=== PATIENT | female | born 1955 | race Caucasian/White ===

== ENCOUNTER 2019-01-16 09:54 | Outpatient (REF) | payer BC, SELFPAY ==
[2019-01-16 19:42] LABS: Iron 57 ug/dL (50-175)
[2019-01-16 19:44] LABS: ALT 25 U/L (12-78); AST 14 U/L (15-37); Anion Gap 10.1 mmol/L (3-11); BUN 14 mg/dL (7-18); CO2 26.9 mmol/L (21.0-32.0); CREATININE 0.88 mg/dL (0.55-1.02); Calculated LDL 78; Chloride 104 mmol/L (98-107); Cholesterol 160 mg/dL (50-200); Glucose 104 mg/dL (70-100); HDL Cholesterol 37 mg/dL (40-60); Potassium 4.4 mmol/L (3.5-5.1); Sodium 141 mmol/L (136-145); Triglyceride 225 mg/dL (30-150)
== END 2019-01-16 10:14 ==
LOC: NCHCN 09:54
PROVIDERS: PCP Nurse Practitioner Family; Visit Provider Nurse Practitioner Family
DX: I10 Essential (primary) hypertension (principal); E78.5 Hyperlipidemia, unspecified; D64.9 Anemia, unspecified
CPT/HCPCS: 80048; 80061; 83721; 83540; 84450; 84460

== ENCOUNTER 2019-05-18 17:16 | Outpatient (REF) | payer BC, SELFPAY | END 2019-05-18 17:36 | LOC: NCHCN 17:16 | PROVIDERS: PCP Nurse Practitioner Family; Visit Provider Nurse Practitioner Family | DX: N89.8 Other specified noninflammatory disorders of vagina (principal) | CPT/HCPCS: 87480; 87510; 87660 ==

== ENCOUNTER 2020-03-14 09:15 | Outpatient (REF) | payer BC, SELFPAY ==
[2020-03-14 20:05] LABS: ALT 24 U/L (14-59); AST 14 U/L (15-37); Albumin 4.2 g/dL (3.4-5.0); Alkaline Phosphatase 138 U/L (46-116); Anion Gap 10.3 mmol/L (3-11); BUN 20 mg/dL (7-18); Bilirubin, Total 0.3 mg/dL (0.2-1.0); CO2 27.7 mmol/L (21.0-32.0); CREATININE 0.97 mg/dL (0.55-1.02); Calcium 9.5 mg/dL (8.5-10.1); Chloride 102 mmol/L (98-107); Creatine Kinase 64 U/L (26-192); Estimated GFR 57.64 (mL/min/1.73m2); Glucose 140 mg/dL (74-106); Potassium 4.4 mmol/L (3.5-5.1); Sodium 140 mmol/L (136-145); Total Protein 7.5 g/dL (6.4-8.2)
[2020-03-14 20:12] LABS: ESR 28 mm/hr (0-30)
[2020-03-15 17:01] LABS: CRP, High Sensitivity 3.93 mg/L (See Note)
== END 2020-03-14 09:35 ==
LOC: NCHCN 09:15
PROVIDERS: PCP Nurse Practitioner Family; Visit Provider Nurse Practitioner Family
DX: I10 Essential (primary) hypertension (principal); M79.10 Myalgia, unspecified site
CPT/HCPCS: 80053; 82550; 85652; 86141

== ENCOUNTER 2021-03-21 17:21 | Outpatient (REF) | payer BC, SELFPAY ==
[2021-03-21 18:45] LABS: ALT 32 U/L (14-59); AST 16 U/L (15-37); Albumin 4.1 g/dL (3.4-5.0); Alkaline Phosphatase 139 U/L (46-116); Anion Gap 8.9 mmol/L (3-11); BUN 18 mg/dL (7-18); Bilirubin, Total 0.2 mg/dL (0.2-1.0); C-Reactive Protein 0.86 mg/dL (0.0-0.3); CO2 28.1 mmol/L (21.0-32.0); CREATININE 1.1 mg/dL (0.55-1.02); Calcium 9.2 mg/dL (8.5-10.1); Chloride 102 mmol/L (98-107); Estimated GFR 49.69 (mL/min/1.73m2); Glucose 102 mg/dL (74-106); Sodium 139 mmol/L (136-145); Total Protein 7.6 g/dL (6.4-8.2)
[2021-03-21 19:08] LABS: ESR 29 mm/hr (0-30)
[2021-03-21 19:31] LABS: COMMENT (LAB VIEW ONLY) 87.09 mg/dL; Microalb ug/mg Crea 4.4 ug/mg Cr
== END 2021-03-21 17:22 | disposition home or self-care (01) ==
LOC: NCHCN 17:21
PROVIDERS: PCP Nurse Practitioner Family; Visit Provider Nurse Practitioner Family
DX: E11.9 Type 2 diabetes mellitus without complications (principal); G89.29 Other chronic pain
CPT/HCPCS: 80053; 85652; 82043; 82570; 86140

== ENCOUNTER 2021-04-21 12:16 | Outpatient (REF) | payer MEDICARE, BC, SELFPAY ==
[2021-04-21 19:41] LABS: Anion Gap 7.1 mmol/L (3-11); BUN 17 mg/dL (7-18); CO2 28.9 mmol/L (21.0-32.0); CREATININE 1.1 mg/dL (0.55-1.02); Calcium 8.9 mg/dL (8.5-10.1); Chloride 104 mmol/L (98-107); Estimated GFR 49.69 (mL/min/1.73m2); Glucose 178 mg/dL (74-106); Potassium 4.2 mmol/L (3.5-5.1); Sodium 140 mmol/L (136-145)
[2021-04-23 16:10] LABS: Rheumatoid Factor <8.6 IU/mL (<12.0)
== END 2021-04-21 12:17 | disposition home or self-care (01) ==
LOC: NCHCN 12:16
PROVIDERS: PCP Nurse Practitioner Family; Visit Provider Nurse Practitioner Family
DX: R94.4 Abnormal results of kidney function studies (principal); G89.29 Other chronic pain
CPT/HCPCS: 80048; 86431

== ENCOUNTER 2021-05-16 09:26 | Outpatient (REF) | payer MEDICARE, BC, SELFPAY ==
--- OUTSIDE RECORDS SUMMARY | 2021-05-16 09:31 | XMS_ITS ---
:1955 Author Care Team Providers Name Role Phone ELA HAMILTON MD Primary Care Provider [phone] JUD PORTILLO PA-C Orthopedic Surgeon [phone] Allergies Code Code System Name Reaction Severity Status Onset 268010 RxNorm Oxycontin ? ? Active ? Wellbutrin ? ? Active ? Medications Name Status Start Date Stop Date ? ? amitriptyline 25 mg tablet Active ? Not a vailable Take 1 tablet every day by oral route. atorvastatin 20 mg tablet Active ? Not av ailable cetirizine 10 mg tablet Completed ? 03/23/20 21 clobetasol 0.05 % topical ointment Active ? Not available APPLY A THIN LAYER TO THE AFFECTED AREA(S) BY TOPICAL ROUTE 1 T IMES PER DAY clonazepam 0.5 mg tablet Active ? Not marifer ilable diclofenac 1 % topical gel Completed ? 03/23 estradiol 10 mcg vaginal tablet Active ? Not available fluticasone propionate 50 Active ? Not av ailable mcg/actuation nasal spray,suspension FreeStyle Lancets 28 gauge Active ? Not a vailable FreeStyle Lite Strips Active ? Not availa ble lisinopril 20 mg tablet Completed ? 03/23/20 21 lisinopril 5 mg tablet Active ? Not avail able metformin 500 mg tablet Active ? Not avai lable mirtazapine 7.5 mg tablet Completed ? 2020 nitrofurantoin Completed ? 03/28/2021 monohydrate/macrocrystals 100 mg capsule nitroglycerin 0.4 mg sublingual Active ? Not available tablet omeprazole 40 mg capsule,delayed Active ? Not available release oxycodone 5 mg tablet Completed 07/10/2012 08/27/2012 1-2 Tablet: every 4-6 hours as needed sertraline 100 mg tablet Completed ? 021 zolpidem 5 mg tablet Completed ? 03/23/2021 Problems Name Status Onset Date Source ? Anxiety Active 03/23/2021 ? Depressive Disorder Active 03/23/2021 ? Anemia Active ? History Carpal Tunnel Syndrome Active ? History Musculoskeletal Symptom Active ? History Chest Pain Active ? History Blood Chemistry Abnormal Active ? History Pain of Left Hand Active ? History Procedure by Method Unknown ? History Procedures Date Name Performed by ? 07/29/1996 Laparoscopy Information not avai lable Notes: Diagnostic w/ Lysis of Adhesio ns, Torsten Fundoplication ? Appendectomy Information not avai lable ? Cholecystectomy Information not avai lable ? Torsten Fundoplication Information not av ailable ? Orthopedic Surgery Information not avai lable Notes: right CTR, 07/10/12 02/12/2019 XR, Hand, 3 or More View [facility] (Internal) [address] [place] [address] (Work Place) Results Lab Results Date Name Specimen Result Interpretation Description Value Range Status Address ? 03/28/2021 Pathology TISS ? Report (see ? Final No [facility] Country Study below) [facility] ([facility]) : [address] Past Encounters 04/10/2021 Lichen Sclerosus Et Atrophicus of the Vu lva Javon Moreira MD: [address] [place] [phone], Ph. 03/28/2021 Pruritus of Vulva Javon Moreira MD: [address] [place] [phone], Ph. 08/08/2020 Malik Metzger MD: [address] [place] [address], [address], [place] [address], Ph. Social History Tobacco Smoking Status Never Smoker Vaccine List None recorded. Plan of Care Reminders Provider Appointments None ? ? recorded. Lab None ? ? recorded. Referral None ? ? recorded. Procedures None ? ? recorded. Surgeries None ? ? recorded. Imaging None ? ? recorded. Vitals 03/28/2021 09:00AM New Patient 30 Height Weight BMI Blood Pressure 157.48 cm 81.19 kg 32.7 kg/m2 130/80 mm[Hg] 08/08/2020 02:45PM Consult 15 Weight 06/11/2019 03:45PM Injection 15 Height Weight 157.48 cm 05/21/2019 09:00AM Follow Up 15 Height Weight BMI Blood Pressure 157.48 cm 77.47 kg 31.2 kg/m2 122/58 mm[Hg] 04/24/2019 03:30PM Follow Up 15 Height Weight BMI Blood Pressure 157.48 cm 76.57 kg 30.9 kg/m2 138/68 mm[Hg] 04/01/2019 03:00PM Follow Up 15 Height Weight 157.48 cm 02/12/2019 01:00PM Consult 30 Height Weight BMI Blood Pressure 157.48 cm 75.7 kg 30.5 kg/m2 128/62 mm[Hg] 03/09/2016 Height Weight Blood Pressure 157.48 cm 83.91 kg 182/62 mm[Hg] 08/27/2012 Height Weight Blood Pressure 157.48 cm 84.37 kg 128/60 mm[Hg] 07/18/2012 Height Weight Blood Pressure 157.48 cm 84.37 kg 121/64 mm[Hg] 07/01/2012 Height Weight Blood Pressure 157.48 cm 84.37 kg 122/64 mm[Hg] 04/22/2012 Height Weight Blood Pressure 157.48 cm 84.37 kg 144/72 mm[Hg] 02/28/2012 Height Weight Blood Pressure 157.48 cm 84.37 kg 136/56 mm[Hg]
--- OUTSIDE RECORDS SUMMARY | 2021-05-16 09:31 | XMS_ITS | Encounter Summary ---
:1955 Author Care Team Providers Name Role Phone Anam Hensley MD Primary Care Provider [phone] Chiara Dillon PA-C Orthopedic Surgeon [phone] Reason for Visit None recorded. Assessment and Plan Assessment Note 65 yo who had a recent vul agustina biopsy du eto vulvar irritation seen to discuss result of pathology which was notable for Lichen sclerosis. Finding was explained. Treatment plan discussed. P t. education material was also provided. Questions answered. She will return in 12 weeks for follow up. 20 min visit. 1. Lichen sclerosus et atrophicu s of the vulva ? clobetasol 0.05 % topical ointment Discussion Note: None recorded.Patient educational handouts: No information available. Plan of Care Reminders Provider Appointments Office 20 07/04/2021 [facility] od 9:30AM MD Lillie ? Return to on or around ? Office 10/29/2026 Lab None ? ? recorded. Referral None ? ? recorded. Procedures None ? ? recorded. Surgeries None ? ? recorded. Imaging None ? ? recorded. Medications Name Start Date ? ? amitriptyline 25 mg tablet ? Take 1 tablet every day by oral route. atorvastatin 20 mg tablet ? clobetasol 0.05 % topical ointment ? APPLY A THIN LAYER TO THE AFFECTED AREA(S) BY TOPICAL ROUTE 1 TIMES PER DAY clonazepam 0.5 mg tablet ? estradiol 10 mcg vaginal tablet ? fluticasone propionate 50 mcg/actuation nasal spray,jansen spension ? FreeStyle Lancets 28 gauge ? FreeStyle Lite Strips ? lisinopril 5 mg tablet ? metformin 500 mg tablet ? nitroglycerin 0.4 mg sublingual tablet ? omeprazole 40 mg capsule,delayed release ? Medications Administered None recorded. Vitals None recorded. Results Lab Results None recorded. Allergies Code Code System Name Reaction Severity Onset 467484 RxNorm Oxycontin ? ? ? Wellbutrin ? ? ? Problems Name Status Onset Date Source ? Anxiety Active 03/23/2021 ? Depressive Disorder Active 03/23/2021 ? Anemia Active ? History Carpal Tunnel Syndrome Active ? History Musculoskeletal Symptom Active ? History Chest Pain Active ? History Blood Chemistry Abnormal Active ? History Pain of Left Hand Active ? History Procedures Date Name Performed by ? 07/29/1996 Laparoscopy Information not avai lable Notes: Diagnostic w/ Lysis of Adhesio ns, Torsten Fundoplication ? Appendectomy Information not avai lable ? Cholecystectomy Information not avai lable ? Torsten Fundoplication Information not av ailable ? Orthopedic Surgery Information not avai lable Notes: right CTR, 07/10/12 Vaccine List None recorded. Social History Tobacco Smoking Status Never Smoker What is your level of alcohol consumption? Occasional Did the fall result in an injury? N Have you used IV drugs? N What is your code status? 0 How much tobacco do you chew? none What was the date of your most recent tobacco screening? 11/2018 Do you have an advanced directive? Y Do you feel safe at home? Y Have you fallen in the last 3 months? Y Functional Status Unknown. Past Encounters 04/10/2021 Lichen Sclerosus Et Atrophicus of the Vu lva Javon Moreira MD: [address] [place] [phone], Ph. 03/28/2021 Pruritus of Vulva Javon Moreira MD: [address] [place] [phone], Ph. History of Present Illness Note: 65 yo who had a recent vulvar biopsy du eto vulvar irritation presented to discuss result of pathology. On presentation she appears comfortable, continues to report vulvar burning sensation.Review of Systems: ROS as noted in the HPI Review of Systems None recorded. Physical Exam None recorded.
--- OUTSIDE RECORDS SUMMARY | 2021-05-16 09:32 | XMS_ITS | Encounter Summary ---
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 On exam vulvar atrophy was noted and findings consistent with lichen scl erosis. Information with respect to Lichen sclerosis was provided. A biopsy was recommended with which she agreed. A vulvar biopsy from left labia majora at 5 ocl ock position was obtained. Hemostasis wa s noted. She tolerated the procedure well. She will return to discuss treatment plan after biopsy result is obtained. 30 min visit. 1. Pruritus of vulva ? biopsy, vulva (PROC) Discussion Note: None recorded.Patient educational handouts: No information available. Plan of Care Reminders Provider Appointments Office 20 07/04/2021 [facility] od 9:30AM MD Lillie ? Return to on or around ? Office 10/29/2026 Lab None ? ? recorded. Referral None ? ? recorded. Procedures Biopsy, 03/28/2021 ? Vulva (PROC) Surgeries None ? ? recorded. Imaging None [...] release ? Medications Administered None recorded. Vitals Height Weight BMI Blood Pressure 5 ft 2 in 179 lbs 32.7 kg/m2 130/80 mm[Hg] Results Lab Results None recorded. Allergies Code Code System Name Reaction Severity Onset 263105 RxNorm Oxycontin ? ? ? Wellbutrin ? [...] months? Y Functional Status Unknown. Past Encounters 03/28/2021 Pruritus of Vulva Javon Moreira MD: [address] [place] [phone], Ph. History of Present Illness Note: 65 yo presented with complain of vulvar itching and burning sensation as well as discomfort during intercourse that feels like her sking is stretching and some stime s it results in skingbreak that causes minimal bleeding. On presentation she appears comfortable, denies any other issues. Review of Systems: ROS as noted in the HPI Review of Systems None recorded. Physical Exam ? Brief Pelvic Exam Reported By: Patient Golf Tournament Consultant: Golf Tournament Consultant: present; Kira Mcconnell in Skin: Appearance: no rashes, no le sions Female Genitalia: Vulva: no masses, no lesions , vulvar atrophy. Vagina: no tenderness, no erythema, no abnormal vaginal discharge, no vesicle(s) or ulcers, no cys tocele, no rectocele, normal atrophy
[2021-05-18 18:23] LABS: COVID-19 RT-PCR UVMMC Result Negative (Negative)
== END 2021-05-16 09:27 | disposition home or self-care (01) ==
LOC: NCHCN 09:26
PROVIDERS: PCP Nurse Practitioner Family; Visit Provider Internal Medicine
DX: Z20.822 Contact with and (suspected) exposure to COVID-19 (principal)
CPT/HCPCS: U0003

== ENCOUNTER 2021-11-09 10:06 | Outpatient (REF) | payer MEDICARE, SELFPAY ==
[2021-11-09 21:28] LABS: Abs Immature Grans 0.01 10^3/uL (0.0-0.06); Absolute Basophil Count 0.01 10^3/uL (0.0-0.2); Absolute Eosinophil Count 0.13 10^3/uL (0.0-0.7); Absolute Lymphocyte Count 1.44 10^3/uL (1.2-3.4); Absolute Monocyte Count 0.33 10^3/uL (0.1-0.8); Absolute Neutrophil Count 4.35 10^3/uL (1.2-6.7); Basophils % 0.2; Eosinophils % 2.1; HCT 35.7 % (36.0-46.0); HGB 11.1 g/dL (11.2-15.7); Immature Grans % 0.2; MCH 27.9 pg (27.0-33.0); MCHC 31.1 % (32.0-36.0); MCV 89.7 fL (80-95); MPV 11.4 fL (8.0-11.0); Monocytes % 5.3; Neutrophils % 69.2; Platelet Count 342 10^3/uL (130-400); RBC 3.98 10^6/uL (3.93-5.22); WBC 6.27 10^3/uL (4.4-10.8)
[2021-11-09 21:31] LABS: ALT 29 U/L (14-59); AST 22 U/L (15-37); Albumin 3.9 g/dL (3.4-5.0); Alkaline Phosphatase 134 U/L (46-116); Anion Gap 10.2 mmol/L (3-11); BUN 20 mg/dL (7-18); Bilirubin, Total 0.2 mg/dL (0.2-1.0); CO2 27.8 mmol/L (21.0-32.0); Chloride 102 mmol/L (98-107); Glucose 204 mg/dL (74-106); Iron 45 ug/dL (50-170); Potassium 4.5 mmol/L (3.5-5.1); Sodium 140 mmol/L (136-145); Total Protein 7.3 g/dL (6.4-8.2)
== END 2021-11-09 10:07 | disposition home or self-care (01) ==
LOC: NCHCN 10:06
PROVIDERS: PCP Nurse Practitioner Family; Visit Provider Nurse Practitioner Family
DX: D64.9 Anemia, unspecified (principal); E11.9 Type 2 diabetes mellitus without complications; R94.4 Abnormal results of kidney function studies
CPT/HCPCS: 80053; 83540; 85025

== ENCOUNTER 2022-07-16 11:45 | Outpatient (REF) | payer MEDICARE, SELFPAY ==
[2022-07-16 19:09] LABS: Bilirubin Negative (Negative); Blood Moderate (Negative); Clarity Cloudy (Clear); Glucose Negative (Negative); Ketones Trace mg/dL (Negative); Leukocyte Esterase Moderate (Negative); Nitrite Negative (Negative); Specific Gravity >= 1.030 (1.005-1.025); Urobilinogen 0.2 EU/dL (Up TO 0.2); pH 5.5 (5-8)
[2022-07-16 19:25] LABS: Bacteria Moderate HPF (Negative); C & S Indicated? Yes; Casts Negative LPF (Negative); Crystals Few Calcium Oxalate HPF (Negative); Epithelial Cells Few HPF (Negative); Mucus Trace (Negative); WBC 20-50 HPF (0-5)
== END 2022-07-16 11:46 | disposition home or self-care (01) ==
LOC: NCHCN 11:45
PROVIDERS: PCP Nurse Practitioner Family; Visit Provider Nurse Practitioner Family
DX: R30.0 Dysuria (principal)
CPT/HCPCS: 87077; 81003; 81015; 87086; 87186

== ENCOUNTER 2022-08-02 16:36 | Outpatient (REF) | payer MEDICARE, SELFPAY ==
[2022-08-02 19:02] LABS: Anion Gap 6.4 mmol/L (3-11); BUN 19 mg/dL (7-18); CO2 28.6 mmol/L (21.0-32.0); CREATININE 1.1 mg/dL (0.55-1.02); Calcium 9.3 mg/dL (8.5-10.1); Chloride 103 mmol/L (98-107); Estimated GFR 55.07 (mL/min/1.73m2); Glucose 122 mg/dL (74-106); Sodium 138 mmol/L (136-145)
== END 2022-08-02 16:37 | disposition home or self-care (01) ==
LOC: NCHCN 16:36
PROVIDERS: PCP Nurse Practitioner Family; Visit Provider Nurse Practitioner Family
DX: R30.0 Dysuria (principal); E11.9 Type 2 diabetes mellitus without complications; I10 Essential (primary) hypertension
CPT/HCPCS: 80048; 87077; 87086; 87186

== ENCOUNTER 2023-02-19 09:21 | Outpatient (REF) | payer MEDICARE, SELFPAY ==
[2023-02-19 19:22] LABS: HCT 34.5 % (36.0-46.0); HGB 11.3 g/dL (11.2-15.7); MCH 28.6 pg (27.0-33.0); MCHC 32.8 % (32.0-36.0); MCV 87 fL (80-95); MPV 11.9 fL (8.0-11.0); Platelet Count 349 10^3/uL (130-400); RBC 3.95 10^6/uL (3.93-5.22); RDW 13.2 % (11.7-14.6); RDW-SD 42.4 fL; WBC 7.53 10^3/uL (4.4-10.8)
[2023-02-19 20:22] LABS: Iron 52 ug/dL (50-170); Total Iron Binding Capacity 311 ug/dL (250-450); Transferrin Sat 17 % (15-50)
[2023-02-19 20:33] LABS: ALT 20 U/L (14-59); AST 15 U/L (15-37); Alkaline Phosphatase 137 U/L (46-116); Anion Gap 8.5 mmol/L (3-11); BUN 24 mg/dL (7-18); Bilirubin, Total 0.3 mg/dL (0.2-1.0); CO2 27.5 mmol/L (21.0-32.0); CREATININE 1.1 mg/dL (0.55-1.02); Calcium 9.6 mg/dL (8.5-10.1); Chloride 100 mmol/L (98-107); Estimated GFR 54.73 (mL/min/1.73m2); Ferritin 21 ng/mL (8-252); Glucose 117 mg/dL (74-106); Potassium 4.5 mmol/L (3.5-5.1); Sodium 136 mmol/L (136-145); Total Protein 7.6 g/dL (6.4-8.2)
== END 2023-02-19 09:22 | disposition home or self-care (01) ==
LOC: NCHCN 09:21
PROVIDERS: PCP Nurse Practitioner Family; Visit Provider Nurse Practitioner Family
DX: E11.9 Type 2 diabetes mellitus without complications (principal); I10 Essential (primary) hypertension; D64.9 Anemia, unspecified
CPT/HCPCS: 80053; 85027; 82728; 83540; 83550

== ENCOUNTER 2023-03-26 17:59 | Outpatient (REF) | payer MEDICARE, SELFPAY ==
[2023-03-26 19:49] LABS: Vitamin B12 817 pg/mL (193-986)
[2023-03-26 20:11] LABS: Folate > 20.0 ng/mL (8.6-20.0)
== END 2023-03-26 18:00 | disposition home or self-care (01) ==
LOC: NCHCN 17:59
PROVIDERS: PCP Nurse Practitioner Family; Visit Provider Nurse Practitioner Family
DX: D64.9 Anemia, unspecified (principal); E11.9 Type 2 diabetes mellitus without complications; Z79.899 Other long term (current) drug therapy
CPT/HCPCS: 82607; 82746

== ENCOUNTER 2023-12-13 15:48 | Outpatient (REF) | payer MEDICARE, SELFPAY ==
[2023-12-13 19:56] LABS: COMMENT (LAB VIEW ONLY) 113.59 mg/dL; Microalb ug/mg Crea 9.8 ug/mg Cr
[2023-12-13 20:05] LABS: ALT 26 U/L (14-59); Anion Gap 5.5 mmol/L (3-11); BUN 19 mg/dL (7-18); CO2 29.5 mmol/L (21.0-32.0); Calcium 9.5 mg/dL (8.5-10.1); Calculated LDL 67 mg/dL (<100); Chloride 106 mmol/L (98-107); Cholesterol 177 mg/dL (<200); Estimated GFR 60.98 (mL/min/1.73m2); Glucose 139 mg/dL (74-106); HDL Cholesterol 51 mg/dL (40-60); Potassium 3.9 mmol/L (3.5-5.1); Sodium 141 mmol/L (136-145); Triglyceride 298 mg/dL (<150)
[2023-12-13 20:21] LABS: Creatine Kinase 52 U/L (26-192)
== END 2023-12-13 15:49 | disposition home or self-care (01) ==
LOC: NCHCN 15:48
PROVIDERS: PCP Nurse Practitioner Family; Visit Provider Internal Medicine
DX: I10 Essential (primary) hypertension (principal); E11.9 Type 2 diabetes mellitus without complications
CPT/HCPCS: 80048; 80061; 82550; 82043; 82570; 84460

== ENCOUNTER 2024-11-26 18:02 | Outpatient (REF) | payer MEDICARE, SELFPAY ==
[2024-11-26 19:09] LABS: HCT 38.3 % (36.0-46.0); HGB 12.5 g/dL (11.2-15.7); MCH 29.3 pg (27.0-33.0); MCHC 32.6 % (32.0-36.0); MCV 90 fL (80-95); MPV 11.2 fL (8.0-11.0); Platelet Count 335 10^3/uL (130-400); RBC 4.27 10^6/uL (3.93-5.22); RDW 13.2 % (11.7-14.6); RDW-SD 43.3 fL; WBC 7.57 10^3/uL (4.4-10.8)
[2024-11-26 19:22] LABS: Iron 68 ug/dL (50-170); Total Iron Binding Capacity 280 ug/dL (250-450); Transferrin Sat 24 % (15-50)
[2024-11-26 19:42] LABS: ALT 22 U/L (14-59); AST 15 U/L (15-37); Albumin 4.1 g/dL (3.4-5.0); Alkaline Phosphatase 168 U/L (46-116); BUN 17 mg/dL (7-18); Bilirubin, Total 0.2 mg/dL (0.2-1.0); CREATININE 0.9 mg/dL (0.55-1.02); Calcium 9.5 mg/dL (8.5-10.1); Calculated LDL 86 mg/dL (<100); Chloride 105 mmol/L (98-107); Cholesterol 206 mg/dL (<200); Estimated GFR 68.77 (mL/min/1.73m2); Ferritin 63 ng/mL (8-252); Glucose 64 mg/dL (74-106); HDL Cholesterol 48 mg/dL (>or=50); Potassium 3.9 mmol/L (3.5-5.1); Sodium 142 mmol/L (136-145); Total Protein 8.3 g/dL (6.4-8.2); Triglyceride 361 mg/dL (<150)
== END 2024-11-26 18:03 | disposition home or self-care (01) ==
LOC: NCHCN 18:02
PROVIDERS: PCP Nurse Practitioner Family; Visit Provider Internal Medicine
DX: I10 Essential (primary) hypertension (principal); D50.9 Iron deficiency anemia, unspecified
CPT/HCPCS: 80053; 80061; 85027; 82728; 83540; 83550

== ENCOUNTER 2025-01-19 07:56 | Outpatient (CLI) | payer MEDICARE, SELFPAY ==
--- NOTE | 2025-01-19 07:45 | RT.EKG_ITS ---
APPROVED REPORT Exam: Resting ECG Reason for Exam: palpitations Patient Location: O HR:59 bpm ECG Measurements Heart Rate 59 AXIS SD 196 P 39 QRSd 158 QRS -63 QT 428 T 9 QTc 424 Conclusion Sinus rhythm...normal P axis, V-rate 50- 99 RBBB and LAFB...QRSd >120mS, axis(-40,240)
== END 2025-01-19 07:57 | disposition home or self-care (01) ==
LOC: DI.CARD 07:56
PROVIDERS: PCP Nurse Practitioner Family; Visit Provider Internal Medicine Cardiovascular Disease
DX: R00.2 Palpitations (principal); I45.10 Unspecified right bundle-branch block; I44.4 Left anterior fascicular block
CPT/HCPCS: 93010

== ENCOUNTER → 2025-01-19 13:32 | Outpatient (BNVA) | payer MEDICARE, SELFPAY | PROVIDERS: PCP Nurse Practitioner Family; Referring Provider Nurse Practitioner Family; Visit Provider Internal Medicine Cardiovascular Disease | DX: I49.9 Cardiac arrhythmia, unspecified (principal); E78.5 Hyperlipidemia, unspecified; I10 Essential (primary) hypertension; R00.2 Palpitations; Z79.02 Long term (current) use of antithrombotics/antiplatelets | CPT/HCPCS: 99203; 93005 ==